=== PATIENT | female | born 1950 | race Caucasian/White ===

== ENCOUNTER 2022-12-24 09:41 | Emergency (ER) | payer MEDICARE, BC ==
[2022-12-24] MEDS ORDERED: Lactated Ringers 1,000 ML IV ONE ×3 (10:14→18:11)
[2022-12-24 11:06] LABS: CORONAVIRUS COVID-19 NAA NEGATIVE (NEGATIVE); INFLUENZA A NAA NEGATIVE (NEGATIVE); RESPIRATORY SYNCYTIAL VIR NAA NEGATIVE (NEGATIVE)
[2022-12-24 12:54] LABS: BASOPHILS ABSOLUTE AUTO 0.01 K/mm3 (0.01-0.08); BASOPHILS PERCENT AUTO 0.1 % (0.1-1.2); EOSINOPHILS PERCENT AUTO 0 (0.7-5.8); HEMOGLOBIN 11.2 gm/dl (11.2-15.7); IMMATURE GRAN ABSOLUTE AUTO 0.05 K/mm3 (0.00-0.10); IMMATURE GRAN PERCENT AUTO 0.4 % (<=1.0); LYMPHOCYTES ABSOLUTE AUTO 0.68 K/mm3 (1.18-3.74); MEAN CORPUSCULAR HEMOGLOBIN 28.9 pg (25.6-32.2); MEAN CORPUSCULAR VOLUME 90.2 fl (79.4-94.8); MEAN PLATELET VOLUME 8.3 fl (9.4-12.3); MONOCYTES ABSOLUTE AUTO 0.95 K/mm3 (0.24-0.36); MONOCYTES PERCENT AUTO 6.9 % (4.7-12.5); NEUTROPHILS ABSOLUTE AUTO 12.04 K/mm3 (1.56-6.13); NEUTROPHILS PERCENT AUTO 87.6 % (34.0-71.1); PLATELET COUNT,PLT 760 K/mm3 (182-369); RED BLOOD CELL COUNT 3.88 M/mm3 (3.98-5.22); WHITE BLOOD CELL COUNT,WBC 13.73 K/mm3 (3.98-10.04)
[2022-12-24 13:13] LABS: A/G RATIO 0.6 (1-2); ALBUMIN 2.4 g/dl (3.4-5.0); ANION GAP 21.6 (5-15); BILIRUBIN TOTAL 0.4 mg/dL (0.2-1.0); BUN/CREATININE RATIO 37.3 (14-18); CALCIUM 9.8 mg/dL (8.5-10.1); CREATININE 1.1 mg/dL (0.55-1.02); EST CRCL DRUG DOSING (CG) 40.77 mL/min; POTASSIUM,K 3.6 mEq/L (3.5-5.1); PROTEIN TOTAL,TP 6.2 g/dl (6.4-8.2)
[2022-12-24 13:21] LABS: APPEARANCE,URINE CLEAR (Clear); BILIRUBIN,URINE 1+ (Negative); COLOR,URINE YELLOW (Yellow); GLUCOSE,URINE NEGATIVE (Negative); KETONES,URINE TRACE (Negative); LEUKOCYTE ESTERASE,URINE 1+ (Negative); NITRITE,URINE NEGATIVE (Negative); OCCULT BLOOD,URINE TRACE-LYSED (Negative); PH,URINE 5.5 (5.0-8.0); PROTEIN,URINE 1+ (Negative); UROBILINOGEN,URINE 0.2 (0.2-1.0)
[2022-12-24 14:05] LABS: BACTERIA,URINE RARE /hpf (FEW); EPITHELIAL CELLS,URINE 0-5 /hpf (0-5); MUCUS,URINE RARE /hpf (FEW); RBC,URINE 0-5 /hpf (0-5); WBC,URINE 0-5 /hpf (0-5)
[2022-12-24] MEDS ORDERED: Acetaminophen 325 MG Tab PO ONE ×2 (16:07→16:08)
== END 2022-12-24 19:39 | disposition home or self-care (01) ==
LOC: JD.ED 09:41
DX: C34.92 Malignant neoplasm of unspecified part of left bronchus or lung (principal); E86.9 Volume depletion, unspecified; I10 Essential (primary) hypertension; J45.909 Unspecified asthma, uncomplicated; M19.90 Unspecified osteoarthritis, unspecified site; Z79.82 Long term (current) use of aspirin; Z79.899 Other long term (current) drug therapy; Z20.822 Contact with and (suspected) exposure to COVID-19
CPT/HCPCS: 0241U; 36415; 70450; 71045; 80053; 81001; 85025; 87086; 96360; 96361; 99285; A9270; J7120

== ENCOUNTER 2022-12-26 07:43 | Inpatient (IN) | payer MEDICARE, BC ==
[2022-12-26] MEDS ORDERED: Sodium Chloride 0.9% 10 ML Syringe FLUSH PRN (08:14)
[2022-12-26] MEDS ORDERED: Sodium Chloride 0.9% 1,000 ML IV SCH ×2 (08:15→11:45)
[2022-12-26] MEDS ORDERED: Iopamidol 755 Mg/ML 100 ML Bottle IVPUSH ONE (08:20)
[2022-12-26] MEDS ORDERED: HYDROmorphone 0.5 MG/0.5 ML Syringe IVPUSH ONE ×2 (08:24→11:38)
[2022-12-26] MEDS ORDERED: Sodium Chloride 0.9% 100 ML IV SCH (08:30)
[2022-12-26 08:43] LABS: BASOPHILS ABSOLUTE AUTO 0.01 K/mm3 (0.01-0.08); BASOPHILS PERCENT AUTO 0.1 % (0.1-1.2); EOSINOPHILS ABSOLUTE AUTO 0.01 K/mm3 (0.04-0.36); EOSINOPHILS PERCENT AUTO 0.1 (0.7-5.8); HEMATOCRIT 34.5 % (34.1-44.9); HEMOGLOBIN 10.9 gm/dl (11.2-15.7); IMMATURE GRAN ABSOLUTE AUTO 0.06 K/mm3 (0.00-0.10); IMMATURE GRAN PERCENT AUTO 0.5 % (<=1.0); LYMPHOCYTES ABSOLUTE AUTO 0.71 K/mm3 (1.18-3.74); LYMPHOCYTES PERCENT AUTO 5.6 % (19.3-51.7); MEAN CORPUSCULAR HEMOGLOBIN 29.1 pg (25.6-32.2); MEAN CORPUSCULAR HGB CONC 31.6 g/dl (32.2-35.5); MEAN CORPUSCULAR VOLUME 92.2 fl (79.4-94.8); MEAN PLATELET VOLUME 8.4 fl (9.4-12.3); MONOCYTES PERCENT AUTO 7.2 % (4.7-12.5); NEUTROPHILS ABSOLUTE AUTO 10.89 K/mm3 (1.56-6.13); NEUTROPHILS PERCENT AUTO 86.5 % (34.0-71.1); PLATELET COUNT,PLT 692 K/mm3 (182-369); RED BLOOD CELL COUNT 3.74 M/mm3 (3.98-5.22); WHITE BLOOD CELL COUNT,WBC 12.58 K/mm3 (3.98-10.04)
[2022-12-26 08:54] LABS: INR 1.11; PROTHROMBIN TIME 11.8 SECONDS (9.7-12.0)
[2022-12-26 08:55] LABS: PTT,PARTIAL THROMBOPLSTIN TIME 29.6 SECONDS (21.7-31.4)
[2022-12-26 09:03] LABS: A/G RATIO 0.7 (1-2); ALBUMIN 2.5 g/dl (3.4-5.0); ANION GAP 18.4 (5-15); BILIRUBIN TOTAL 0.4 mg/dL (0.2-1.0); BUN/CREATININE RATIO 33.3 (14-18); CALCIUM 9.5 mg/dL (8.5-10.1); CREATININE 1.2 mg/dL (0.55-1.02); EST CRCL DRUG DOSING (CG) 33.02 mL/min; MAGNESIUM 1.9 mg/dL (1.8-2.4); POTASSIUM,K 3.4 mEq/L (3.5-5.1); PROTEIN TOTAL,TP 6.1 g/dl (6.4-8.2)
[2022-12-26] MEDS ORDERED: Aspirin 81 MG Tab.Chew PO ONE (11:38)
[2022-12-26 12:24] LABS: APPEARANCE,URINE CLEAR (Clear); BILIRUBIN,URINE NEGATIVE (Negative); COLOR,URINE YELLOW (Yellow); GLUCOSE,URINE NEGATIVE (Negative); KETONES,URINE NEGATIVE (Negative); LEUKOCYTE ESTERASE,URINE 1+ (Negative); NITRITE,URINE NEGATIVE (Negative); OCCULT BLOOD,URINE NEGATIVE (Negative); PH,URINE 5.5 (5.0-8.0); PROTEIN,URINE 1+ (Negative); UROBILINOGEN,URINE 0.2 (0.2-1.0)
[2022-12-26 12:47] LABS: BACTERIA,URINE MODERATE /hpf (FEW); HYALINE CASTS,URINE 20-30 /lpf (0-5); MUCUS,URINE FEW /hpf (FEW); RBC,URINE 0-5 /hpf (0-5); SQUAMOUS EPITHELIAL CELLS,UR 0-5 /hpf (0-5)
[2022-12-26] MEDS ORDERED: Ondansetron 4 MG/2 ML SDV IVPUSH PRN (18:26)
[2022-12-26] MEDS ORDERED: Acetaminophen/oxyCODONE 325-5 MG Tab PO PRN (18:26)
[2022-12-26] MEDS ORDERED: Lidocaine 4% 1 each Patch TOP SCH (18:30)
[2022-12-26] MEDS: HYDROmorphone 1 MG/ML Syringe IVPUSH PRN (20:25)
[2022-12-26] MEDS ORDERED: Dextrose 5%-0.45% NaCl 1,000 ML IV SCH (21:15)
[2022-12-26] MEDS: Acetaminophen 325 MG Tab PO SCH (21:17)
[2022-12-27] MEDS: HYDROmorphone 1 MG/ML Syringe IVPUSH PRN ×2 (00:29→05:06)
[2022-12-27] MEDS: Acetaminophen 325 MG Tab PO SCH (02:58)
== END 2022-12-27 09:55 | disposition expired | DRG 951 ==
LOC: JD.ED 07:43 → JD.ICU 13:58
PROVIDERS: ADMIT Internal Medicine; ATTEND Internal Medicine
DX: Z51.5 Encounter for palliative care (principal); C34.90 Malignant neoplasm of unspecified part of unspecified bronchus or lung; C79.9 Secondary malignant neoplasm of unspecified site; Z66 Do not resuscitate; E86.0 Dehydration; R79.89 Other specified abnormal findings of blood chemistry; M19.90 Unspecified osteoarthritis, unspecified site; R62.7 Adult failure to thrive; H54.7 Unspecified visual loss; R77.8 Other specified abnormalities of plasma proteins; C34.92 Malignant neoplasm of unspecified part of left bronchus or lung; Z87.891 Personal history of nicotine dependence; Z68.24 Body mass index [BMI] 24.0-24.9, adult; C34.91 Malignant neoplasm of unspecified part of right bronchus or lung; C78.7 Secondary malignant neoplasm of liver and intrahepatic bile duct; I10 Essential (primary) hypertension; J45.909 Unspecified asthma, uncomplicated; Z79.899 Other long term (current) drug therapy
CPT/HCPCS: 36415; 70450; 71275; 74177; 80053; 81001; 83690; 83735; 84484; 85025; 85610; 85730; 86140; 93005; 96361; 96374; 99285; A9270; J1170; J3490; J7030 ×2; Q9967; 99223; 99238; J7042